=== PATIENT | male | born 1990 | race Caucasian/White ===

== ENCOUNTER 2021-11-27 07:08 | Inpatient (IN) | payer MEDICAID ==
[~2021-11-27] VITALS: Ht 180.3 cm; Wt 100.0 kg
[2021-11-27 15:10] VITALS: BP 158/92
[2021-11-27] MEDS ORDERED: DIVA-76 PO ×2 (15:40)
[2021-11-27] MEDS ORDERED: ZIPR80CA10 PO (15:40)
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
[2021-11-27 19:00] VITALS: BP 143/70
[2021-11-27] MEDS: divalproex 250mg tablet, delayed-release PO SCH (20:11)
[2021-11-27] MEDS: ziprasidone 20mg capsule PO SCH (20:11)
[2021-11-27] MEDS ORDERED: LORazepam 1 MG tablet PO PRN (21:00)
[2021-11-27] MEDS: traZODone 50mg tablet PO PRN (21:12)
[2021-11-27] MEDS ORDERED: magnesium hydroxide 30ml (MOM) UD suspension PO PRN (22:15)
[2021-11-27] MEDS ORDERED: mag hydrox/Alum hydrox/simeth 30ml oral suspension PO PRN (22:15)
[2021-11-27] MEDS ORDERED: acetaminophen 325mg tablet PO PRN ×2 (22:15)
[2021-11-27] MEDS ORDERED: loperamide 2mg capsule PO PRN (22:15)
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
[2021-11-28 08:00] VITALS: BP 131/69
--- NOTE | 2021-11-28 08:25 | NUR ---
PHONE CALL WITH MOM Norman's mother, Emmanuelle, had emailed [facility] requesting a call so she can provide information about Norman. Norman signed release for his mother. Called Emmanuelle (ph# [phone]) and she provided the following information: Norman was diagnosed with Bipolar and Schizoaffective about 7 years ago. She reported he has been to [facility] several times and does not follow up afterwards. She reported he is not medication compliant due to side effects from Geodon and Seroquel. She reported Abilify was the most helpful with psychotic symptoms, however, it caused him to be quite lethargic and he gained a lot of weight. She reported a family history of Schizophrenia (maternal grandmother and maternal uncle). She reported both she and Norman's father are being treated for depression. Norman was living with his father, Denver Mujica (ph# [phone]), however, she believes he cannot return there. The father rents and has been told Norman cannot return due to his behavior. She reported Norman has become more aggressive when he gets psychotic. She reported he smokes "a lot" of marijuana daily. She reported he also has fatty liver disease. She reported he is currently on some sort of disability until Jul. She noted he used to work at the [employer] of the [employer] until Cov. Thanked Emmanuelle for the information. TAURUS Montaño
[2021-11-28] MEDS: divalproex 250mg tablet, delayed-release PO SCH ×2 (08:41→20:04)
[2021-11-28] MEDS: ziprasidone 20mg capsule PO SCH ×2 (08:41→20:05)
[2021-11-28 10:19] LABS: HEMOGLOBIN A1C 5.6 % (4.5-6.2)
[2021-11-28 10:29] LABS: CHOL/HDL RATIO 5.6 (0.00-4.99); CHOLESTEROL 207 MG/DL (0-200); HDL CHOLESTEROL 37 MG/DL (35-60); LDL CHOLESTEROL 141 MG/DL (50-100); TRIGLYCERIDES 127 MG/DL (20-135)
[2021-11-28] MEDS ORDERED: NICOTINE POLACRILEX 4 MG LOZENGE BC PRN (12:10)
[2021-11-28] MEDS ORDERED: NICOTINE POLACRILEX 2 MG LOZENGE BC PRN (12:16)
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
[2021-11-28 20:40] VITALS: BP 111/77
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
[2021-11-29 07:53] VITALS: BP 116/77
[2021-11-29] MEDS: divalproex 250mg tablet, delayed-release PO SCH ×2 (08:44→20:04)
[2021-11-29] MEDS ORDERED: ziprasidone 20mg capsule PO ONE (09:15)
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
--- NOTE | 2021-11-29 17:23 | NUR ---
Group Art Tx. Continued: Patient was escorted into the group room by a staff member. Patient was trembling, fearful and chose to remain in the back of the room for about 10 minutes. Patient was then able to bring himself to the table and the activity was explained. Patient sat for about 5 minutes, and determined it needed to return to him room, noting "I am just not ready to do this." He did take his handouts with him, for a later time. *Please refer to [employer] for a complete review of the session. Keyla Garcia, [facility] #[id number], Art Therapist Addendum: 11/29/21 at 1727 by Keyla Garcia SS Amended: Links added.
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
[2021-11-29] MEDS: ziprasidone 20mg capsule PO SCH (20:05)
[2021-11-29 20:43] VITALS: BP 145/78
[2021-11-29] MEDS: traZODone 50mg tablet PO PRN (20:44)
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
[2021-11-30 07:23] VITALS: BP 126/82
[2021-11-30] MEDS: divalproex 250mg tablet, delayed-release PO SCH ×2 (08:41→20:25)
[2021-11-30] MEDS: ziprasidone 20mg capsule PO SCH ×2 (08:41→20:25)
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
[2021-11-30 19:00] VITALS: BP 132/72
[2021-11-30] MEDS: traZODone 50mg tablet PO PRN (20:25)
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
[2021-12-01 07:48] VITALS: BP 128/76
[2021-12-01] MEDS: divalproex 250mg tablet, delayed-release PO SCH ×2 (08:44→19:58)
[2021-12-01] MEDS: ziprasidone 20mg capsule PO SCH ×2 (08:44→19:58)
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
[2021-12-01] MEDS: traZODone 50mg tablet PO PRN (19:58)
[2021-12-01 20:00] VITALS: BP 117/80
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
--- NOTE | 2021-12-02 07:52 | NUR ---
Initial: Pt admitted w/ bipolar disorder per EMR. Currently on Regular diet w/ avg intake 64% x 12 meals which meets approximately 79% of est energy needs and 80% of est protein needs. Based on documentation, it appears that pt mostly refuses breakfast. Pt can benefit from smoothies BIDLD to help ensure protein and energy needs are met. [facility] 12/01. Will continue to monitor. Recs: 1. Continue Regular diet as tolerated 2. Smoothies BIDLD; pt refuses most breakfasts 3. Bowel care per rx 4. Weekly wts Addendum: 12/02/21 at [address] Amended: Links added.
[2021-12-02] MEDS: ziprasidone 20mg capsule PO SCH ×2 (08:02→20:16)
[2021-12-02] MEDS: divalproex 250mg tablet, delayed-release PO SCH ×2 (08:03→20:16)
[2021-12-02 08:58] VITALS: BP 120/69
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
[2021-12-02 19:57] VITALS: BP 123/69
[2021-12-02] MEDS: traZODone 50mg tablet PO PRN (20:27)
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
[2021-12-03] MEDS: divalproex 250mg tablet, delayed-release PO SCH ×2 (07:45→20:26)
[2021-12-03] MEDS: ziprasidone 20mg capsule PO SCH ×2 (07:46→20:26)
[2021-12-03 09:17] VITALS: BP 119/67
--- NOTE | 2021-12-03 12:26 | NUR ---
Called Norman's mother, Emmanuelle (ph# [phone]), to inquire if she is planning on coming out to [place] to assist Norman with finding housing as he is unable to return to his dad's home. She reported she will fly out once she knows when he is getting discharged and will meet him in [place]. Called Norman's dad, Denver (ph# [phone]), who reported he can reserve a room in a hotel for Norman when he discharges ([facility] in [place]). He reported he will bring him his wallet and clothes to the hotel upon discharge. Informed Denver that Emmanuelle is going to fly out to help Norman look for housing. Community Living Specialist will apprise Norman's parents when Norman is going to discharge. TAURUS Montaño
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
[2021-12-03 19:12] VITALS: BP 119/69
[2021-12-03] MEDS: traZODone 50mg tablet PO PRN (20:26)
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
[2021-12-04 08:09] VITALS: BP 131/71
[2021-12-04] MEDS: ziprasidone 20mg capsule PO SCH ×2 (08:10→20:32)
[2021-12-04] MEDS: divalproex 250mg tablet, delayed-release PO SCH ×2 (08:10→20:33)
[2021-12-04] MEDS ORDERED: NICO-907 BC (15:07)
[2021-12-04] MEDS ORDERED: TRAZ-251 PO (15:07)
[2021-12-04] MEDS ORDERED: DIVA-76 PO ×2 (15:07)
[2021-12-04] MEDS ORDERED: ZIPR60CA7 PO (15:10)
[2021-12-04 16:21] LABS: ALANINE AMINOTRANSFERASE 46 U/L (12-78); ALBUMIN 3.9 G/DL (3.4-5.0); ALBUMIN/GLOBULIN RATIO 1.4 (1.1-1.5); ALKALINE PHOSPHATASE 34 IU/L (46-116); ANION GAP 8 (8-16); ASPARTATE AMINO TRANSFERASE 17 U/L (10-37); BILIRUBIN,TOTAL 0.4 MG/DL (0.1-1.0); BLOOD UREA NITROGEN 14 MG/DL (7-18); CHLORIDE 105 MMOL/L (99-107); CREATININE 1.17 MG/DL (0.60-1.10); GLUCOSE 87 MG/DL (70-104); POTASSIUM 4.7 MMOL/L (3.5-5.1); SODIUM 141 MMOL/L (135-145); TOTAL CARBON DIOXIDE 28.4 MMOL/L (24-32); TOTAL PROTEIN 6.7 G/DL (6.4-8.2); eGFR 72 ML/MIN
[2021-12-04 16:27] LABS: VALPROATE 98.4 UG/ML (50-100)
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
[2021-12-04 19:20] VITALS: BP 113/68
[2021-12-04] MEDS: traZODone 50mg tablet PO PRN (20:33)
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
[2021-12-05] MEDS: divalproex 250mg tablet, delayed-release PO SCH (07:43)
[2021-12-05] MEDS: ziprasidone 20mg capsule PO SCH (07:43)
[2021-12-05 08:00] VITALS: BP 120/80
--- NOTE | 2021-12-05 08:10 | NUR ---
DISCHARGE PLANNING Left a message for Giorgio at [facility] to see if they have transportation set up for today. Requested follow up appointments as well. Spoke to Giorgio yesterday afternoon regarding d/c and transportation. He said he would call back with the information and he did not. Plan is for Norman to discharge to [facility] in [facility]. His dad, Denver, is going to rent the room for him, take him his belongings, and his car. Norman's mother, Emmanuelle, is planning on flying out to [place] and is going to meet Norman in [place] and assist him with finding an apartment. Norman has agreed to follow up with [facility]. TAURUS Montaño
--- NOTE | 2021-12-05 09:38 | NUR ---
FIELD ARTILLERY OPERATIONS SPECIALIST AT 11 AM TODAY [facility] will pick up worker Norman at 11 AM today. Follow up is scheduled with [place] [facility]. Both parents are aware of his discharge and assisting him. TAURUS Montaño
--- NOTE | 2021-12-05 11:35 | NUR ---
DISCHARGE NOTE: Pt. discharged at 1135am, pt ambulated off floor with belongings including; clothing he was wearing, passport and customer experience leader. Pt. was happy to be discharging.
== END 2021-12-05 11:40 | disposition home or self-care (01) | DRG 753 ==
LOC: ADULT MH 14:41
PROVIDERS: ADMIT Psychiatry & Neurology Psychiatry; ATTEND Psychiatry & Neurology Psychiatry
DX: F39 Unspecified mood [affective] disorder (principal); E66.9 Obesity, unspecified; F17.210 Nicotine dependence, cigarettes, uncomplicated; F20.9 Schizophrenia, unspecified; Z79.899 Other long term (current) drug therapy; Z71.6 Tobacco abuse counseling; Z68.30 Body mass index [BMI] 30.0-30.9, adult; Z59.00 Homelessness unspecified
CPT/HCPCS: 36415; 80053; 80061; 80164; 83036; 87081